=== PATIENT | female | born 2000 | race Caucasian/White ===

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

== ENCOUNTER 2019-08-18 20:04 | Emergency (ER) | payer OTHER ==
[~2019-08-18] VITALS: Ht 157.5 cm; Wt 99.8 kg
[2019-08-18 20:14] VITALS: BP 132/85; Ht 157.5 cm; Wt 99.8 kg
== END 2019-08-18 21:24 | disposition home or self-care (01) ==
LOC: ED 20:04
DX: S63.91XA Sprain of unspecified part of right wrist and hand, initial encounter (principal); W22.01XA Walked into wall, initial encounter; Y93.89 Activity, other specified; Y92.89 Other specified places as the place of occurrence of the external cause; Y99.8 Other external cause status

== ENCOUNTER 2020-03-24 04:10 | Emergency (ER) | payer MEDICAID ==
[~2020-03-24] VITALS: Ht 157.5 cm; Wt 78.5 kg
[2020-03-24 04:25] VITALS: Ht 157.5 cm; Wt 78.5 kg
[2020-03-24 05:44] VITALS: BP 134/83
== END 2020-03-24 05:45 | disposition home or self-care (01) ==
LOC: ED 04:10
DX: N39.0 Urinary tract infection, site not specified (principal); Z11.3 Encounter for screening for infections with a predominantly sexual mode of transmission
CPT/HCPCS: 87491; 87591; J0696